=== PATIENT | female | born 1955 | race Caucasian/White ===

== ENCOUNTER 2016-08-10 07:08 | Day surgery (SDC) | payer OTHER ==
[~2016-08-10] VITALS: Ht 179.1 cm; Wt 89.0 kg
[~2016-08-10 07:08] MED LIST: CALCIUM 600 PO; ELMIRON100 MG PO; FISH OIL1000 M1 PO; IRON325 MG PO; LOSARTAN POTASS25 MG PO; MULTIPLE VITAMIN PO; VITAMIN D-31000 UNIT PO; ZYRTEC ALLERGY10 MG PO
--- NOTE | 2016-08-10 09:34 | Provider's Discharge Care Plan ---
Problem, Goal, Plan Problem List 1. Status post colonoscopy Goals: Screening Instructions: Follow up as needed, Take meds as directed, high-fiber diet
--- NOTE | 2016-08-10 09:34 | Provider's Discharge Care Plan ---
Problem, Goal, Plan Problem List 1. Status post colonoscopy Goals: Screening Instructions: Follow up as needed, Take meds as directed, high-fiber diet
[2016-08-10 10:45] VITALS: BP 146/76
--- NOTE | 2016-08-15 08:34 | Operative Report ---
Operative Report Date of Surgery: 08/10/16 Preoperate Diagnosis: change in bowel habits Postoperative Diagnosis: normal colonoscopy Surgeon: Sanjay Carrasco MD Base [employer] Operator Surgeon: none Procedure Performed: Colonoscopy Anesthesia: Total intravenous anesthesia Indications: 61-year-old female, change in bowel habits, referred for colonoscopy. No prior history of colonoscopy. FINDINGS: Normal appearing cecum, ascending, transverse, descending, sigmoid colon, rectal vault normal. No evidence of inflammatory changes. Surgical Technique: Patient was brought to the operating room. Patient was placed in the left lateral decubitus position. Patient was administered TIVA by anesthesia. Once anesthesia had taken effect digital rectal examination was performed. No masses or stenosis was appreciated. This was then followed by the passage of a fiberoptic video flexible Olympus colonoscope. The scope was then passed without difficulty and the cecum was visualized. The cecum was identified by anatomical landmarks and anterior abdominal wall ballottement. On withdrawing the scope the aforementioned findings were noted. The scope was then retroflexed and a good view of the rectal wall obtained. The scope was then completely withdrawn. Patient tolerated procedure well. Patient was transferred to the recovery room in stable condition. There were no intraoperative or anesthetic complications.
== END 2016-08-10 10:51 | disposition home or self-care (01) ==
LOC: OR SRH 07:08 → SCU SRH 07:10 → OR SRH 09:00
PROVIDERS: Specialist
PROC: 0DJD8ZZ Inspection of Lower Intestinal Tract, Via Natural or Artificial Opening Endoscopic (ICD-10-PCS; principal; 2016-08-10 09:00)
DX: R19.4 Change in bowel habit (principal); I10 Essential (primary) hypertension
CPT/HCPCS: 29229; 29240; 50004; 60001; 83526